=== PATIENT | male | born 1995 | race African-American/Black ===

== ENCOUNTER 2020-11-19 10:42 | Emergency (ER) | payer BC, OTHER ==
[2020-11-19 11:05] VITALS: BP 118/68; PULSE 60; TEMP 98; BMI 23.1
[2020-11-19] MEDS ORDERED: metroNIDAZOLE 250 MG TABLET PO ONE (11:12)
[2020-11-19] MEDS ORDERED: metroNIDAZOLE 250 MG TABLET ONE (11:19)
== END 2020-11-19 11:44 | disposition home or self-care (01) ==
LOC: JERFT 10:42
DX: A59.9 Trichomoniasis, unspecified (principal); Z20.2 Contact with and (suspected) exposure to infections with a predominantly sexual mode of transmission
CPT/HCPCS: 36415; 87491; 87591; 87661; 99283-25